=== PATIENT | male | born 1985 | race Caucasian/White ===

== ENCOUNTER 2018-04-07 20:35 | Emergency (ER) | payer SELFPAY ==
--- NOTE | 2018-04-07 21:34 | ER ---
Nurse's Notes [facility] Name: Paco Borrero Jr Age: 32 yrs Sex: Male : 1985 Arrival Date: 04/07/2018 Time: 20:36 Bed 28 Private MD: Diagnosis: Syncope and collapse;Toxic effect of ethanol Presentation: 04/07 20:49 Presenting complaint: EMS states: he was unconscious at home, breathing and beers was mg2 at sight at home. he gained consciousness while at the ambulance. Transition of care: patient was not received from another setting of care. Onset of symptoms was April 07, 2018. Risk Assessment: Do you want to hurt yourself or someone else? Patient reports no desire to harm self or others. Initial Sepsis Screen: Does the patient meet any 2 criteria? No. Patient's initial sepsis screen is negative. Does the patient have a suspected source of infection? No. Patient's initial sepsis screen is negative. Care prior to arrival: None. 20:49 Method Of Arrival: EMS mg2 20:49 Acuity: KATIE 3 mg2 Historical: - Allergies: 20:51 No Known Allergies; mg2 - Home Meds: 20:51 None [Active]; mg2 - PMHx: 20:51 cardiac problem; mg2 - PSHx: 20:51 hand surgery; mg2 - Immunization history:: Flu vaccine status is unknown. - Social history:: Smoking status: Patient uses tobacco products, cigars, 5 sticks a day, Patient uses alcohol, Patient/guardian denies using street drugs, IV drugs. - Ebola Screening: : No symptoms or risks identified at this time. Screenin:55 Abuse screen: Denies threats or abuse. Denies injuries from another. Nutritional mg2 screening: No deficits noted. Tuberculosis screening: No symptoms or risk factors identified. Fall Risk IV access (20 points). Assessment: 20:55 General: Appears unkempt, Behavior is calm, cooperative. Pain: Complains of pain in mg2 epigastric Pain does not radiate. Pain currently is 2 out of 10 on a pain scale. Quality of pain is described as aching, Pain began gradually. Neuro: Level of Consciousness is awake, alert, obeys commands, Oriented to person, place, time. Cardiovascular: Capillary refill < 3 seconds Patient's skin is warm and dry. Respiratory: Airway is patent Respiratory effort is even, unlabored, Respiratory pattern is regular, symmetrical. GI: Reports upper abdominal pain. : No signs and/or symptoms were reported regarding the genitourinary system. EENT: No signs and/or symptoms were reported regarding the EENT system. Derm: Skin is intact, Skin is pink, warm \T\ dry. normal. Musculoskeletal: No signs and/or symptoms reported regarding the musculoskeletal system. 21:45 Reassessment: Patient appears in no apparent distress at this time. Patient and/or mg2 family updated on plan of care and expected duration. Pain level reassessed. patient refused investigations. Vital Signs: 20:46 BP 132 / 78; Pulse 119; Resp 18; Temp 98.6(O); Pulse Ox 100% ; Weight 88.45 kg; Height mg2 6 ft. 1 in. (185.42 cm); Pain 2/10; 20:46 Body Mass Index 25.73 (88.45 kg, 185.42 cm) mg2 ED Course: 20:36 Patient arrived in ED. am2 20:48 Elan Mullen, RN is Primary Nurse. mg2 20:48 Inserted saline lock: 20 gauge in right forearm, using aseptic technique. Blood tl3 collected. 20:50 Triage completed. mg2 20:55 Arm band placed on. mg2 20:57 Patient has correct armband on for positive identification. laboratory monitor on. Pulse mg2 ox on. NIBP on. Door closed. Warm blanket given. 21:09 Calvin Escalera MD is Attending Physician. 21:45 No provider procedures requiring assistance completed. IV discontinued, intact, mg2 bleeding controlled, No redness/swelling at site. Pressure dressing applied. Administered Medications: No medications were administered Outcome: 21:33 Discharge ordered by . 21:46 Discharged to home ambulatory. mg2 21:46 Condition: good 21:46 Discharge instructions given to patient, Instructed on discharge instructions, follow up and referral plans. Demonstrated understanding of instructions, follow-up care. 21:46 Patient left the ED. mg2 Signatures: Alba Avila am2 Calvin Escalera MD MD Karie Javier RN RN tl3 Elan Mullen, MELANI RN mg2 Corrections: (The following items were deleted from the chart) 21:01 20:46 BP 132 / 78; Pulse 119bpm; Resp 18bpm; Pulse Ox 100%; tl3 mg2
--- NOTE | 2018-04-07 21:34 | EDPHYS ---
Physician Documentation [facility] Name: Paco Borrero Jr Age: 32 yrs Sex: Male : 1985 Arrival Date: 04/07/2018 Time: 20:36 Bed 28 Private MD: ED Physician Calvin Escalera HPI: 04/07 21:31 This 32 yrs old Male presents to ER via EMS with complaints of Altered Mental gs Status. 21:31 The patient presents with decreased responsiveness. Onset: The symptoms/episode gs began/occurred acutely, just prior to arrival, 1 hour(s) ago. Possible causes: alcohol, has had a recent alcohol binge. Associated signs and symptoms: Pertinent positives: headache, Pertinent negatives: agitation, chest pain. Current symptoms: In the emergency department the patient's symptoms have resolved, the patient is alert and fully oriented, has normal speech, has normal responsiveness, has no confusion. The patient has experienced similar episodes in the past, a few times. The patient has not recently seen a physician. Historical: - Allergies: 20:51 No Known Allergies; mg2 - Home Meds: 20:51 None [Active]; mg2 - PMHx: 20:51 cardiac problem; mg2 - PSHx: 20:51 hand surgery; mg2 - Immunization history:: Flu vaccine status is unknown. - Social history:: Smoking status: Patient uses tobacco products, cigars, 5 sticks a day, Patient uses alcohol, Patient/guardian denies using street drugs, IV drugs. - Ebola Screening: : No symptoms or risks identified at this time. ROS: 21:31 All other systems are negative. gs Exam: 21:31 Head/Face: Normocephalic, atraumatic. Eyes: Pupils equal round and reactive to light, gs extra-ocular motions intact. Lids and lashes normal. Conjunctiva and sclera are non-icteric and not injected. Cornea within normal limits. Periorbital areas with no swelling, redness, or edema. ENT: Nares patent. No nasal discharge, no septal abnormalities noted. Tympanic membranes are normal and external auditory canals are clear. Oropharynx with no redness, swelling, or masses, exudates, or evidence of obstruction, uvula midline. Mucous membranes moist. Neck: Trachea midline, no thyromegaly or masses palpated, and no cervical lymphadenopathy. Supple, full range of motion without nuchal rigidity, or vertebral point tenderness. No Meningismus. Chest/axilla: Normal chest wall appearance and motion. Nontender with no deformity. No lesions are appreciated. Respiratory: Lungs have equal breath sounds bilaterally, clear to auscultation and percussion. No rales, rhonchi or wheezes noted. No increased work of breathing, no retractions or nasal flaring. Abdomen/GI: Soft, non-tender, with normal bowel sounds. No distension or tympany. No guarding or rebound. No evidence of tenderness throughout. Back: No spinal tenderness. No costovertebral tenderness. Full range of motion. Skin: Warm, dry with normal turgor. Normal color with no rashes, no lesions, and no evidence of cellulitis. MS/ Extremity: Pulses equal, no cyanosis. Neurovascular intact. Full, normal range of motion. Neuro: Awake and alert, GCS 15, oriented to person, place, time, and situation. Cranial nerves II-XII grossly intact. Motor strength 5/5 in all extremities. Sensory grossly intact. Cerebellar exam normal. Normal gait. 21:31 Constitutional: The patient appears alert, awake. 21:31 Cardiovascular: Rate: tachycardic, Rhythm: regular, Pulses: no pulse deficits are appreciated. Vital Signs: 20:46 BP 132 / 78; Pulse 119; Resp 18; Temp 98.6(O); Pulse Ox 100% ; Weight 88.45 kg; Height mg2 6 ft. 1 in. (185.42 cm); Pain 2/10; 20:46 Body Mass Index 25.73 (88.45 kg, 185.42 cm) mg2 MDM: 21:27 Patient medically screened. gs 21:31 Differential Diagnosis: alcohol intoxication, overdose, seizure, volume depletion. Data gs reviewed: vital signs, nurses notes. Response to treatment: the patient's symptoms have resolved after treatment, say wants no workup labs fluids ct head wants to go home. Administered Medications: No medications were administered Disposition: 04/07/18 21:33 Discharged to Home. Impression: Syncope and collapse, Toxic effect of ethanol. - Condition is Stable. - Discharge Instructions: Alcohol Intoxication, Syncope. - Medication Reconciliation Form, Thank You Letter, Antibiotic Education, Prescription Opioid Use form. - Follow up: Private Physician; When: 2 - 3 days; Reason: Re-evaluation by your physician. Signatures: Calvin Escalera MD MD gs Elan Mullen RN RN mg2 Corrections: (The following items were deleted from the chart) 21:46 21:33 04/07/2018 21:33 Discharged to Home. Impression: Syncope and collapse; Toxic mg2 effect of ethanol. Condition is Stable. Forms are Medication Reconciliation Form, Thank You Letter, Antibiotic Education, Prescription Opioid Use. Follow up: Private Physician; When: 2 - 3 days; Reason: Re-evaluation by your physician. gs
[2018-04-07 22:40] VITALS: BP 132/78; TEMP 98.6; O2SAT 100
== END 2018-04-07 21:46 | disposition home or self-care (01) ==
LOC: ER 20:35
DX: T51.0X1A Toxic effect of ethanol, accidental (unintentional), initial encounter (principal); R55 Syncope and collapse; Y92.9 Unspecified place or not applicable; Z72.0 Tobacco use
CPT/HCPCS: 99284